=== PATIENT | male | born 1955 | race African-American/Black ===

== ENCOUNTER 2019-10-21 20:30 | Observation (INO) | payer MEDICARE, BC ==
[2019-10-21 22:38] LABS: #Eosinphils 0.1 thou/uL (0.0-0.7); #Lymphocytes 0.8 thou/uL (1.20-3.40); #Monocytes 0.4 thou/uL (0.11-0.59); %Basophils 0.3 % (0.0-1.0); %Eosinophils 1.2 % (0.0-10.0); %Lymphocytes 13.1 % (21.0-51.0); %Monocytes 6.7 % (0.0-10.0); %Neutrophils 78.7 % (42.0-75.0); Hemoglobin 13.7 g/dL (14.0-18.0); Mean Corpuscular HGB CONC 32.7 g/dL (32.0-36.0); Mean Corpuscular Hemoglobin 28.7 pg (27.0-31.0); Mean Corpuscular Volume 87.8 fL (78.0-98.0); Mean Platelet Volume 7.8 fL (7.4-10.4); Platelet Count 186 thou/uL (130-400); RBC Distribution Width 12.4 % (11.5-14.5); Red Blood Cell (RBC) Count 4.77 mill/uL (4.70-6.10); White Blood Cell (WBC) Count 6.3 thou/uL (4.8-10.8)
[2019-10-21 22:58] LABS: ALT (SGPT) 19 U/L (8-55); AST (SGOT) 16 U/L (5-34); Albumin 4.4 g/dL (3.4-4.8); Alkaline Phosphatase 90 U/L (40-110); Anion Gap 12 mmol/L (10-20); BUN (Urea Nitrogen) 8 mg/dL (8.4-25.7); Bilirubin, Total 0.4 mg/dL (0.2-1.2); Calc. Creatinine Clearance 0 mL/min (70-130); Calcium 9.5 mg/dL (7.8-10.44); Carbon Dioxide 29 mmol/L (23-31); Chloride 103 mmol/L (98-107); Estimated GFR-MDRD 76; Globulin 2.6 g/dL (2.4-3.5); Glucose 162 mg/dL (80-115); Potassium 4.7 mmol/L (3.5-5.1); Sodium 139 mmol/L (136-145)
--- NOTE | 2019-10-21 23:12 | CT ---
HEAD CT WITHOUT CONTRAST: 10/21/19 COMPARISON: None. HISTORY: Imbalance. TECHNIQUE: Axial CT imaging of 5 mm intervals from vertex through the skull base without contrast. FINDINGS: The imaged paranasal sinuses and mastoid air cells demonstrate no acute findings. No acute osseous ab normality, intracranial hemorrhage, midline shift, or mass effect. IMPRESSION: No intracranial hemorrhage. POS: H
[2019-10-21 23:50] LABS: Bilirubin Negative (Negative); Blood, Urine Negative (Negative); Clarity Turbid (Clear); Glucose, Urine (Dipstick) 300 mg/dL (Negative); Leukocyte Negative Leu/uL (Negative); Nitrite Negative (Negative); Protein, Urine (Dipstick) 20 mg/dL (Neg-Trace); Urobilinogen Normal mg/dL (Less than 2)
[2019-10-22] MEDS ORDERED: Aspirin Chewable 81 MG TAB ONE (00:23)
[2019-10-22 00:27] LABS: Free T4 (Free Thyroxine) 0.83 ng/dL (0.70-1.48); Thyroid Stimulating Hormone 0.956 uIU/mL (0.35-4.94)
[2019-10-22 00:29] LABS: CKMB 1.5 ng/mL (0-6.6)
[2019-10-22 03:00] LABS: Troponin I Less than 0.010 ng/mL (< 0.028)
[2019-10-22 06:35] LABS: Troponin I Less than 0.010 ng/mL (< 0.028)
[2019-10-22 06:58] VITALS: BMI 33.8
--- NOTE | 2019-10-22 08:00 | RAD ---
EXAM: Single view of the chest HISTORY: Dizziness COMPARISON: 05/07/2015 FINDINGS: Single view of the chest shows a normal sized cardiomediastinal silhouette. There is no glendy dence of consolidation, mass, or pleural effusion. Degenerative changes are seen in the spine. IMPRESSION: No evidence of acute cardiopulmonary disease
[2019-10-22 11:02] LABS: Hemoglobin A1c 6.1 % (4.0-6.0)
--- NOTE | 2019-10-22 12:00 | PRG ---
DATE OF SERVICE: 10/22/2019 PRIMARY TRUCK DRIVER INSTRUCTOR: Dr. Otilio Clark. SUBJECTIVE: Mr. Olmstead is a very pleasant gentleman, who came to the hospital complaining of "dizziness." Some of this seemed to be positional when he stood up too fast, but also occasionally if he turned his head too quickly. It was noted here that his heart rate was somewhat low, and he had an indeterminate troponin level. He was brought in for observation. He never had any chest pain, pressure, heaviness, or squeezing. MEDICATIONS: As an outpatient, he was on: 1. Losartan 100 mg a day. 2. Amlodipine 2.5 mg a day. 3. Metoprolol succinate 25 mg a day. 4. Omeprazole 40 mg if needed. 5. Aspirin 81 mg a day. 6. Atorvastatin 20 mg a day. OBJECTIVE: GENERAL: The patient currently is resting comfortably, feels well. VITAL SIGNS: Blood pressure 165/78, pulse 62 and regular. LUNGS: Clear. CARDIAC: Normal S1. Normal S2. ABDOMEN: Soft and nontender. EXTREMITIES: No edema. PERTINENT LABORATORY DATA: The troponin was 0.033, which is in the low indeterminate range, below 0.29 is normal. The other troponins were less than 0.010. ASSESSMENT AND PLAN: 1. Lightheadedness, suspected more likely due to orthostatic hypotension. 2. Transient bradycardia. There was an EKG from last night at 2105 hours showing heart rate of 47, but he is not bradycardic now. 3. Low indeterminate troponin. Plan; stress testing to be done. Stop beta-jed. 4. Orthostatic hypotension. Blood pressures were done. There really was not a significant drop; 137/66 supine, 140/76 sitting, and 157/88 standing. Job ID: [id number]
--- NOTE | 2019-10-22 15:41 | HP ---
HISTORY OF PRESENT ILLNESS: Mr. Olmstead is a 64-year-old black man. He came to this facility last night with complaint of dizziness and lightheadedness. His problem started suddenly while he was sitting. He also noticed at the same time severe unsteady gait. He came to the ER. He was evaluated, and at that time, he was noticed to be bradycardic with pulse rate in the 40s. He was admitted for management. He denies any associated shortness of breath. He denies any chest pain. PAST MEDICAL HISTORY: Remarkable for hypertension and hyperlipidemia. He denies diabetes, heart disease, lung disease, or liver disease. PAST SURGICAL HISTORY: Remarkable for prostatectomy due to prostate cancer in 2015. ALLERGIES: HE DOES NOT HAVE ANY KNOWN ALLERGY. SOCIAL HISTORY: He is a former smoker. He last smoked in 1981. He denies history of EtOH abuse. He denies substance abuse. FAMILY HISTORY: Reviewed. He has family history of heart disease and family history of premature coronary artery disease. MEDICATIONS: Prior to admission, he was on: 1. Amlodipine. 2. Atorvastatin. 3. Losartan. 4. Metoprolol succinate. 5. Omeprazole. REVIEW OF SYSTEMS: CONSTITUTIONAL: He denies any fever. Denies any weakness. HEENT: No headache. No ocular pain. No sore throat. No rhinorrhea. No earache. No epistaxis. NECK: No neck pain. No neck stiffness. CARDIOVASCULAR: No shortness of breath. No chest pain. Admits to he came in with lightheadedness and dizziness. PULMONARY: No coughing. GASTROINTESTINAL: No nausea. No vomiting. No diarrhea. No abdominal pain. GENITOURINARY: No dysuria. No hematuria. ENDOCRINOLOGY: No heat or cold intolerance. No polyuria, polydipsia, or polyphagia. MUSCULOSKELETAL: Admits to some arthralgia involving the knees. HEMATOLOGY: No abnormal bleeding. No ecchymosis. LYMPHATIC: No palpable lymphadenopathy. No painful lymphadenopathy. SKIN: No rash. No itching. ALLERGY: No hay fever. NEUROLOGIC: No seizure. PSYCHIATRIC: No anxiety. No depression. PHYSICAL EXAMINATION: GENERAL: At the current time, he is alert, oriented, in no distress. VITAL SIGNS: His latest vital signs show a temperature of 97.7, pulse rate 62, respiratory rate 16, blood pressure 165/78. HEENT: His head is normocephalic and atraumatic. Both his pupils are equal and reactive. Ears and nose are normal. Oral mucosa is moist. Pharyngeal area is clear with no exudate. No hyperemia. NECK: Supple. There is no distention of the jugular vein. No lymphadenopathy felt. Thyroid gland, not palpable. There is no carotid bruit. CHEST: Symmetrical with regular S1 and S2. LUNGS: Clear. ABDOMEN: Soft. Bowel sounds heard. We could not appreciate any organomegaly. EXTREMITIES: Limbs show no edema. NEUROLOGIC: He moves all extremities. LABORATORY DATA: His CBC done yesterday showed a WBC of 6.3, hemoglobin of 13.7, hematocrit of 41.9, MCV of 87.8, platelet of 186. Chemistry and lytes done yesterday show a sodium of 139, potassium 4.7, chloride 103, CO2 of 29, BUN 8, creatinine 1.17, glucose 162, calcium 9.5, magnesium 1.9, total bilirubin 0.4, AST 16, ALT 19, alkaline phosphatase 90. Troponin was noticed; first troponin was elevated at 0.033, last one was less than 0.01. Total protein 7.0, albumin 4.4, globulin 2.6. TSH 0.9560. Free T4 of 0.83. Urinalysis shows a pH of 8.5, specific gravity of 1.021, protein 20 mg/dL, glucose 300 mg/dL. Chest x-ray was reported to show no evidence of acute cardiopulmonary disease. Head CT was reported to show no acute intracranial hemorrhage. ASSESSMENT: This is a 64-year-old black man with history of hypertension and hyperlipidemia, who came in with symptomatic bradycardia, noticed to have an elevated troponin. He also has significant glucose in his urine. We will check a hemoglobin A1c. We will start him on aspirin and REY inhibitor, and he has been on statin. It is possible that his bradycardia may be secondary to beta-jed. We will get Cardiology opinion. He has been admitted to telemetry. Job ID: [id number]
[2019-10-22] MEDS ORDERED: Atorvastatin Calcium 20 MG TAB PO SCH (21:00)
[2019-10-23 05:39] LABS: Cardiac Risk 2.8 (Less than 4.5)
[2019-10-23] MEDS ORDERED: Aspirin 81 mg Enteric Coated Tablet PO SCH (09:00)
[2019-10-23] MEDS ORDERED: Losartan 25 MG TAB PO SCH (09:00)
--- NOTE | 2019-10-23 10:57 | NM ---
EXAM: Nuclear medicine cardiac perfusion examination with ejection fraction HISTORY: Chest pain TECHNIQUE: Rest images: 29.5 mCi technetium 99m sestamibi Stress images: 33.0 mCi of technetium 9M sestamibi; Adenosine COMPARISON: 06/22/2010 FINDINGS: Tomographic images: No fixed or reversible perfusion defects. Gated images: Normal wall motion and ejection fraction of 70%. EDV: 101 mL LHR: 0.3 TID: 1.1 IMPRESSION: No evidence of ischemia
[2019-10-23] MEDS ORDERED: ADENOSINE 60 MG/20 ML VIAL ONE (11:55)
[2019-10-23 12:12] VITALS: BP 166/70; TEMP 98.1
--- NOTE | 2019-10-24 09:39 | DIS ---
DATE OF ADMISSION: 10/22/2019 DATE OF DISCHARGE: 10/23/2019 ADMITTING DIAGNOSES: 1. Seizure. 2. Bradycardia. 3. Mildly elevated troponin. 4. History of hypertension. 5. Hypercholesterolemia. DISCHARGE DIAGNOSES: 1. Seizure. 2. Bradycardia. 3. Mildly elevated troponin. 4. History of hypertension. 5. Hypercholesterolemia. PROMOTION WRITER: Dr. Mullen. PROCEDURES: Stress test, which showed normal. Brain CT, normal. Chest x-ray. COURSE OF HOSPITALIZATION: Responded well to management. The patient does not have any bradycardia at this time. No dizziness. No lightheadedness. He is being discharged home. DISCHARGE MEDICATION: Please see discharge medication reconciliation sheet. He is to follow up with his primary care physician. PHYSICAL EXAMINATION: GENERAL: Today, he is alert, oriented, in no distress. VITAL SIGNS: His latest vital signs show a temperature of 97.4, pulse rate 57, respiratory rate 16, blood pressure 134/72. HEAD AND NECK: His head and neck examination is normal. HEART: He has regular S1 and S2. LUNGS: Clear. ABDOMEN: Benign. EXTREMITIES: Limbs showed no edema. As mentioned above patient is to follow up with his primary care physician ID: [id number] MTDD
== END 2019-10-23 13:22 | disposition home or self-care (01) ==
LOC: ERS 20:30 → ERHOLD 10-22 00:33 → 2SW 10-22 06:54
PROVIDERS: ADMIT Family Medicine; ATTEND Family Medicine
DX: R00.1 Bradycardia, unspecified (principal); R79.89 Other specified abnormal findings of blood chemistry; R56.9 Unspecified convulsions; I95.1 Orthostatic hypotension; I10 Essential (primary) hypertension; E78.00 Pure hypercholesterolemia, unspecified; E78.5 Hyperlipidemia, unspecified; Z85.46 Personal history of malignant neoplasm of prostate; Z87.891 Personal history of nicotine dependence; Z79.82 Long term (current) use of aspirin; Z79.899 Other long term (current) drug therapy
CPT/HCPCS: 70450; 71045; 78452; 80061; 81003; 82553; 83036; 83735; 84439; 84484 ×3; 93005; 93017; 99285; A9500; G0378 ×3; 36415; 80053; 84443; 85025; J0153

== ENCOUNTER 2024-05-17 08:24 | Outpatient (CLI) | payer MEDICARE, OTHER | END 2024-05-17 08:25 | disposition home or self-care (01) | LOC: BICMAMMO 08:24 | PROVIDERS: ATTEND Internal Medicine | DX: N64.4 Mastodynia (principal) | CPT/HCPCS: 77066; G0279 ==